=== PATIENT | male | born 1990 ===

== ENCOUNTER 2017-12-06 20:32 | Emergency (ER) | payer OTHER ==
[~2017-12-06] VITALS: Ht 175.3 cm; Wt 65.9 kg
[2017-12-06] MEDS ORDERED: PERTUSS(ACELL),DIPH,TET VAC/PF 0.5 ML VIAL IM ONE (21:30)
[2017-12-06] MEDS ORDERED: LIDOCAINE HCL 1% 10 ML VIAL INJ ONE (21:30)
[2017-12-06 21:35] LABS: BASOPHILS % (AUTO) 0.9 % (0.0-2.0); EOSINOPHILS % (AUTO) 0.6 % (1.0-6.0); HEMOGLOBIN 15.5 g/dL (13.5-17.5); LYMPHOCYTES # (AUTO) 1.3 K/uL (1.0-4.8); LYMPHOCYTES % (AUTO) 18.9 % (22.0-44.0); MEAN CORPUSCULAR HEMOGLOBIN 30.9 pg (26.0-34.0); MEAN CORPUSCULAR HGB CONC 33.7 G/dL (31.0-37.0); MEAN CORPUSCULAR VOLUME 92 fL (80-100); MONOCYTES # (AUTO) 0.5 K/uL (0.1-1.0); MONOCYTES % (AUTO) 7.7 % (2.0-9.0); NEUTROPHILS % (AUTO) 71.9 % (40.0-70.0); PLATELET COUNT (AUTO) 335 K/uL (150-450); RED BLOOD CELL COUNT(AUTO) 5.02 MIL/uL (4.50-5.90)
[2017-12-06] MEDS ORDERED: LIDOCAINE HCL/PF 1% 5 ML VIAL INJ ONE (21:45)
[2017-12-06] MEDS ORDERED: LIDOCAINE HCL/PF 1% 2 ML VIAL INJ ONE (21:45)
[2017-12-06 21:48] LABS: ANION GAP 8 mmol/L (8-16); CALCIUM, TOTAL 8.8 mg/dL (8.8-10.5); CARBON DIOXIDE 28 mmol/L (22-29); CHLORIDE 103 mmol/L (98-107); CREATININE 0.82 mg/dL (0.60-1.30); GLOMERULAR FILTR. RATE CALC > 60 mL/min (>60); GLUCOSE,RANDOM 106 mg/dL (70-110); POTASSIUM 3.8 mmol/L (3.5-5.1); SODIUM SERUM 139 mmol/L (136-145); UREA NITROGEN, BLOOD 13 mg/dL (7-18)
[2017-12-06 21:53] LABS: ALANINE AMINOTRANSFERASE 73 U/L (12-78); ALBUMIN 4.2 g/dL (3.4-5.0); ALKALINE PHOSPHATASE 98 U/L (46-116); ASPARTATE AMINOTRANSFERASE 79 U/L (15-37); BILIRUBIN,TOTAL 0.3 mg/dL (0.1-1.0); TOTAL PROTEIN, SERUM 8.1 g/dL (6.4-8.2)
[2017-12-06 23:00] VITALS: BP 120/78
== END 2017-12-06 23:24 | disposition home or self-care (01) ==
LOC: EMS 20:33
DX: S01.81XA Laceration without foreign body of other part of head, initial encounter (principal); R55 Syncope and collapse; R39.198 Other difficulties with micturition; Z87.891 Personal history of nicotine dependence; W18.39XA Other fall on same level, initial encounter; Y93.89 Activity, other specified; Y92.89 Other specified places as the place of occurrence of the external cause; Y99.8 Other external cause status
CPT/HCPCS: 12011; 36415; 70450; 72125; 80053; 84484; 85025; 90471; 90715; 93005; 99285; G0480; J3490

== ENCOUNTER 2017-12-11 09:44 | Emergency (ER) | payer OTHER ==
[~2017-12-11] VITALS: Ht 175.3 cm; Wt 68.2 kg
[2017-12-11 10:18] VITALS: BP 125/77
== END 2017-12-11 10:59 | disposition home or self-care (01) ==
LOC: EMS 09:46
DX: Z48.02 Encounter for removal of sutures (principal); Z87.891 Personal history of nicotine dependence
CPT/HCPCS: 99281